=== PATIENT | female | born 1990 | race African-American/Black ===

== ENCOUNTER 2016-12-30 19:14 | Emergency (ER) | payer OTHER ==
--- NOTE | ~2016-12-30 | CT2 ---
[facility] A Service of [facility] RADIOLOGY TEXT RESULTS PATIENT: KOREY MENDOZA LOCATION: CFTX : 91 UNIT #: [id number] AGE: [address]: Daphne Lima SEX: F ORDER DR: [id number] [facility] [address] [place], [place] [address] [id number] MR#: [id number] Acc #: [id number] NAME: KOREY MENDOZA : 1990 SEX: F STUDY DATE/TIME: 12/31/2016 1:04 UNIT: CFTX ROOM: STUDY DESCRIPTION: CT Abd and Pelv W Cont Attending Physician: Daphne Lima Pa-C Ordering Physician: Daphne Lima Pa-C Primary Care Physician: No Primary Care Physician MEDICAL IMAGING REPORT This report is preliminary unless electronic signature is present EXAM CT abdomen and pelvis. INDICATION Right flank pain and nausea for 1-[address] of the abdomen and pelvis utilizing 100 mL Isovue-370 IV contrast. Coronal and sagittal reconstructions were obtained. This CT exam was performed with one or more of the following radiation dose reduction techniques: automatic exposure control, adjustment of mA and/or kV according to patient size, and iterative reconstruction. COMPARISON None available. FINDINGS ABDOMEN: There are 2 small cysts in the liver. The gallbladder is not distended. The pancreas, spleen, and adrenal glands are normal. There is uniform enhancement of the kidneys. The bowel is not dilated. Unfortunately, the appendix is not identified. The cecum is immediately adjacent to the axilla. There are several cystic structures in the adnexa, likely representing follicular cysts. Largest cyst measures 3.2 cm on the right and 3.1 cm on the left. The abdominal aorta is normal in caliber. PELVIS: There is a small to moderate volume of free pelvic fluid. The bladder is decompressed. The uterus is within normal limits. No enlarged pelvic or inguinal lymph nodes. IMPRESSION [facility] A Service of [facility] RADIOLOGY TEXT RESULTS PATIENT: KOREY MENDOZA LOCATION: CFTX : 91 UNIT #: [id number] AGE: [address]: Daphne Lima SEX: F ORDER DR: 1. Unfortunately, the appendix is not identified. 2. Bilateral adnexal cysts are likely follicular cysts. 3. Mild to moderate volume of free fluid in the pelvis. Dictated by... Vinh Lemus M.D. THIS IS AN ELECTRONICALLY VERIFIED REPORT Vinh Lemus M.D. at 12/31/2016 11:14 PM ARJUN/elizabeth TD: 12/31/2016 07:09 JOB #: [id number] MEDICAL IMAGING REPORT Page 1 of 1 COPY
[2016-12-30 21:57] LABS: BASOPHIL# 0.1 X10e3 (0-0.3); BASOPHIL% 0.6 % (0-2.5); HEMATOCRIT 37.7 % (35.0-45.0); HEMOGLOBIN 12.2 gm/dL (12.0-16.0); LYMPHOCYTE# 1.6 X10e3 (1.0-3.5); LYMPHOCYTE% 10.9 % (17.0-45.0); MEAN CELL VOLUME 89.3 FL (83-96); MEAN CORPUSCULAR HEMOGLOBIN 28.9 PG (28-34); MEAN CORPUSCULAR HGB CONC 32.4 g/dL (30-36); MEAN PLATELET VOLUME 8.5 FL (6.5-11.5); MONOCYTE# 0.8 X10e3 (0-1.0); MONOCYTE% 5.6 % (3.0-12.0); NEUTROPHIL# 11.9 X10e3 (1.5-7.1); NEUTROPHIL% 82.9 % (40-75); PLATELET COUNT 276 X10e3 (140-420); RED BLOOD COUNT 4.22 X10e (3.90-5.30); RED CELL DISTRIBUTION WIDTH 13.8 % (11.0-15.5); WHITE BLOOD COUNT 14.4 X10e3 (4.0-10.5)
[2016-12-30 22:01] LABS: DIFF IND NO
[2016-12-30 22:21] LABS: ALBUMIN SERUM 3.9 g/dL (3.5-5.0); BILIRUBIN, DIRECT 0.2 mg/dL (0.0-0.2); BILIRUBIN,INDIRECT 1.2 mg/dL (0.0-0.9); BILIRUBIN,TOTAL 1.4 mg/dL (0.2-2.0); BUN/CREATININE RATIO 16.25; CALCIUM SERUM 8.7 mg/dL (8.4-10.2); CREATININE SERUM 0.8 mg/dL (0.6-1.4); GLOM FILT RATE Estimated 118.9 mL/min (>60); POTASSIUM 3.8 mmol/L (3.5-5.1); PROTEIN TOTAL SERUM 7.6 g/dL (6.0-8.3)
[2016-12-30 23:15] LABS: URINE SOURCE CLEAN CATCH
[2016-12-30 23:18] LABS: URINE APPEARANCE CLOUDY; URINE BLOOD 3+ (NEG); URINE COLOR DK YELLOW; URINE GLUCOSE NEG (NEG); URINE KETONE 3+ (NEG); URINE LEUKOCYTE ESTERASE 1+ (NEG); URINE NITRATE NEG (NEG); URINE PH 5.5 (5-8); URINE PROTEIN TRACE (NEG); URINE SPECIFIC GRAVITY 1.037 (1.003-1.035)
[2016-12-30 23:21] LABS: CULTURE INDICATED? YES; URINE BACTERIA AUWI NEG (NEGATIVE); URINE SQUAMOUS EPITHELIAL CELL OCC /[HPF]; UWBCS1 AUWI 100-200 (0-5)
[2016-12-30 23:34] LABS: URINE BILIRUBIN NEG (NEG); URINE MUCUS PRESENT
== END 2016-12-31 02:06 | disposition home or self-care (01) ==
LOC: CFTX 19:14 → CED 19:14 → CFTX 23:45
PROVIDERS: Emergency Medicine
DX: N83.209 Unspecified ovarian cyst, unspecified side (principal)
CPT/HCPCS: 36415; 74177; 80048; 80076; 81003; 82150; 82947; 83690; 84703; 85025; 87086; 96361; 96374; 99284; J1885; Q9967